=== PATIENT | male | born 1975 | race Caucasian/White ===

== ENCOUNTER 2016-12-30 11:32 | Inpatient (IN) | payer MEDICARE ==
[2017-01-01] MEDS ORDERED: BENADRYL25 MG PO (13:14)
[2017-01-01] MEDS ORDERED: RISPERDAL3 MG PO (13:14)
[2017-01-01] MEDS ORDERED: BENZTROPINE ME0.5 MG PO (13:14)
[2017-01-01] MEDS ORDERED: PROAIR HFA8.5 GM IH (13:15)
[2017-01-01] MEDS ORDERED: TAMIFLU75 MG PO (13:15)
== END 2017-01-01 13:00 | disposition home or self-care (01) | DRG 194 ==
LOC: ER 11:32 → MED 17:04
PROVIDERS: ADMIT Internal Medicine
DX: J10.1 Influenza due to other identified influenza virus with other respiratory manifestations (principal); N17.9 Acute kidney failure, unspecified; E87.1 Hypo-osmolality and hyponatremia; J44.1 Chronic obstructive pulmonary disease with (acute) exacerbation; F20.9 Schizophrenia, unspecified; F17.210 Nicotine dependence, cigarettes, uncomplicated; E86.0 Dehydration; Z79.899 Other long term (current) drug therapy; J44.9 Chronic obstructive pulmonary disease, unspecified
CPT/HCPCS: 36415; 87502; 87651; 94640; A9540; A9567; J1650

== ENCOUNTER 2016-12-30 11:32 | Emergency (ER) | payer MEDICARE | END 2016-12-30 17:03 | disposition critical access hospital (66) | LOC: ER 11:32 | DX: J10.1 Influenza due to other identified influenza virus with other respiratory manifestations (principal); R01.1 Cardiac murmur, unspecified; R09.02 Hypoxemia; N28.9 Disorder of kidney and ureter, unspecified; R73.9 Hyperglycemia, unspecified; K21.9 Gastro-esophageal reflux disease without esophagitis; E78.5 Hyperlipidemia, unspecified; E66.9 Obesity, unspecified; F17.210 Nicotine dependence, cigarettes, uncomplicated | CPT/HCPCS: 36415; 87502; 87651 ==

== ENCOUNTER 2017-03-14 10:01 | Emergency (ER) | payer MEDICARE ==
[~2017-03-14 10:01] MED LIST: BENADRYL25 MG PO; BENZTROPINE ME0.5 MG PO; PROAIR HFA8.5 GM IH; RISPERDAL3 MG PO; TAMIFLU75 MG PO
== END 2017-03-14 10:36 | disposition home or self-care (01) ==
LOC: ER 10:01
DX: L03.314 Cellulitis of groin (principal); E78.5 Hyperlipidemia, unspecified; K21.9 Gastro-esophageal reflux disease without esophagitis; G25.81 Restless legs syndrome; F20.9 Schizophrenia, unspecified; F17.210 Nicotine dependence, cigarettes, uncomplicated; Z99.11 Dependence on respirator [ventilator] status